=== PATIENT | female | born 1975 | race Caucasian/White ===

== ENCOUNTER 2016-08-11 01:53 | Emergency (ER) | payer OTHER, SELFPAY ==
[2016-08-11] MEDS ORDERED: Adacel (T-DAP) 0.5 ML VIAL ONE (02:08)
[2016-08-11] MEDS ORDERED: Ibuprofen 200 MG TAB ONE (02:16)
== END 2016-08-11 02:25 | disposition home or self-care (01) ==
LOC: BURERS 01:53
DX: S01.01XA Laceration without foreign body of scalp, initial encounter (principal); F17.210 Nicotine dependence, cigarettes, uncomplicated; W20.8XXA Other cause of strike by thrown, projected or falling object, initial encounter
CPT/HCPCS: 90715

== ENCOUNTER 2019-08-13 11:01 | Observation (INO) | payer SELFPAY ==
[2019-08-13 11:48] LABS: Bilirubin Negative (Negative); Blood, Urine Trace (Negative); Clarity Cloudy (Clear); Glucose, Urine (Dipstick) Negative (Negative); Leukocyte Large (Negative); Nitrite Positive (Negative); Protein, Urine (Dipstick) Trace mg/dL (Neg-Trace); Urobilinogen 0.2 mg/dL (Less than 2)
[2019-08-13 11:50] LABS: Pregnancy Test - Urine (BHCG) Negative (Negative); Pregu Control Background? CLEAR/WHITE (CLR/WHITE); Pregu Control Bar Appear? YES (CONTROL BAR); Specific Gravity 1.015 (1.002-1.036)
[2019-08-13] MEDS ORDERED: Ketorolac Tromethamine 30 MG/ML VIAL ONE (11:50)
[2019-08-13 11:55] LABS: Bacteria/HPF 3+ HPF (None Seen); RBC/HPF 0-3 HPF (0-3); WBC/HPF 21-50 HPF (0-3)
[2019-08-13 11:57] LABS: Mucous/LPF Rare LPF (<2+)
[2019-08-13 12:23] LABS: Hemoglobin 13.1 g/dL (12.0-16.0); Mean Corpuscular HGB CONC 31.7 g/dL (32.0-36.0); Mean Corpuscular Hemoglobin 29.3 pg (27.0-31.0); Mean Corpuscular Volume 92.6 fL (78.0-98.0); Mean Platelet Volume 5.9 fL (7.4-10.4); Platelet Count 459 thou/uL (130-400); RBC Distribution Width 11.8 % (11.5-14.5); Red Blood Cell (RBC) Count 4.47 mill/uL (4.20-5.40); White Blood Cell (WBC) Count 20.7 thou/uL (4.8-10.8)
[2019-08-13 12:25] LABS: Anion Gap 14 mmol/L (10-20); BUN (Urea Nitrogen) 8 mg/dL (7.0-18.7); Calc. Creatinine Clearance 0 mL/min (70-130); Calcium 9.1 mg/dL (7.8-10.44); Carbon Dioxide 24 mmol/L (22-29); Chloride 100 mmol/L (98-107); Estimated GFR-MDRD 73; Glucose 112 mg/dL (70-105); Potassium 4.1 mmol/L (3.5-5.1); Sodium 134 mmol/L (136-145)
[2019-08-13 12:39] LABS: Band 7 % (5-11); Eosinophils 1 % (0-10); Lymphocytes 13 % (21-51); MDiff Complete? YES; Monocytes 7 % (0-10); Neutrophil 72 % (42-75); Platelet Morphology Comment Appears Increased; RBC Morphology Normal
[2019-08-13] MEDS ORDERED: cefTRIAXone\\ROCEPHIN 2 GM VIAL ONE (12:46)
[2019-08-13] MEDS ORDERED: Sodium Chloride 0.9% 100 ML ONE (12:46)
[2019-08-13] MEDS ORDERED: Sodium Chloride 0.9% 1,000 ML IV SCH (14:30)
[2019-08-13] MEDS ORDERED: Prevnar 13-Val Conj/PF 0.5 ML SYRINGE IM ONE (15:00)
[2019-08-13 15:03] VITALS: BMI 20.2
[2019-08-13] MEDS: Ibuprofen 600 MG TAB PO PRN (16:16)
[2019-08-13] MEDS: Acetaminophen 325 MG TAB PO PRN ×2 (17:35→23:48)
--- NOTE | 2019-08-13 17:49 | CT ---
CT ABDOMEN AND PELVIS WITHOUT CONTRAST: 08/13/[address] was performed for evaluation of abdominal pain. This study was done without IV contr ast or oral contrast. The lung bases are significant in that there is an infiltrate in the left lower lobe posterolaterally . I suspect this may be a resolving pneumonia. The lungs are otherwise clear. The liver, spleen, pancreas, gallbladder, adrenal glands, kidneys and abdominal aorta were unremarkab le within the limitations of a noncontrast study. The bowel shows no distention, wall thickening or i nflammatory change around it. No free air or free fluid was seen. CT of the pelvis showed no pelvic masses, fluid collections, or inflammatory changes. IMPRESSION: 1. No acute abdominal findings. 2. Slightly irregular left lower lobe infiltrate. A resolving pneumonia seems probable and could be the cause of referred pain to the abdomen. A follow-up chest film is recommended after treatment. The findings discussed with Dr. Her at 12:12 on 08/13/19. POS: HOME
[2019-08-13] MEDS: Sodium Chloride 0.9% 1,000 ML IV SCH ×2 (18:46→23:48)
--- NOTE | 2019-08-13 19:29 | HP ---
HISTORY OF PRESENT ILLNESS: A 44-year-old white female admitted from the emergency room with 2-day complaint of left flank pain. She denies fever, chills, sweats, or otherwise feeling unwell. REVIEW OF SYSTEMS: CONSTITUTIONAL: Denies fever, chills, recent weight loss, sweats, or appetite change. EYES: No discharge or eye redness. ENT: Denies URI symptoms, including sore throat or ear pain. CV: Denies chest pain, dyspnea, or edema. RESPIRATORY: She continues to have mild cough. GI: Denies constipation, diarrhea, nausea, or vomiting. MUSCULOSKELETAL: Denies joint pain or swelling. SKIN: Denies skin rash. NEUROLOGIC: Denies dizziness, confusion, complaints of headache. PSYCH: She denies mental health history. PAST MEDICAL HISTORY: Negative. PAST SURGICAL HISTORY: Negative. SOCIAL HISTORY: Half a pack a day smoker. She uses daily marijuana. Denies alcohol or other recreational drugs. ALLERGIES: NO KNOWN ALLERGIES. MEDICATIONS: None. PHYSICAL EXAMINATION: VITAL SIGNS: At 1600 on the day of admission, temperature 99.2, pulse 88, BP 99/58, respirations 20, and 97% on room air. CONSTITUTIONAL: No fever. She is alert and oriented x3, well appearing. HEENT: Head; atraumatic and normocephalic. Eyes; no discharge. Conjunctivae normal. Pupils are equal, round, and reactive to light. EOMs intact. NECK: Supple. Normal range of motion. Trachea midline. RESPIRATIONS: Clear to auscultation. No wheezing, no rales. CARDIOVASCULAR: Includes normal. Regular rate and rhythm. No murmur. ABDOMEN: Soft, nontender. No mass or organomegaly. Left positive for CVAT. NEUROLOGIC: Normal speech. SKIN: Warm, dry, and intact. No rash. PSYCHIATRIC: Appropriate. Normal affect. Medications, she received 2 g of Rocephin in the ER around noon today. We will continue that q.24 hours. We will also add Levaquin to cover possible urosepsis. LABORATORY: WBC is 20.7, H and H 13.1 and 41.4, platelets 459, neutrophil 72, bands 7, and lymphs 13. Lactic acid 1.8. Sodium 134, potassium 4.1, and creatinine 0.85. Negative urine hCG. Urine; positive nitrites, urine wbc's 21 to 50, 3+ bacteria. Her CAT scan for stone protocol was normal abdomen with possible left lower lobe infiltrate. DIAGNOSIS: Pyelonephritis versus left lower lobe pneumonia. Medications, Rocephin 2 g q.24, Levaquin 500 mg q.24. She is admitted in observation, expect for her to be discharged within 24 hours. Job ID: [id number]
[2019-08-14 04:54] LABS: Anion Gap 9 mmol/L (10-20); BUN (Urea Nitrogen) 9 mg/dL (7.0-18.7); Calc. Creatinine Clearance 71 mL/min (70-130); Calcium 7.8 mg/dL (7.8-10.44); Carbon Dioxide 21 mmol/L (22-29); Chloride 113 mmol/L (98-107); Estimated GFR-MDRD 88; Glucose 131 mg/dL (70-105); Platelet Count 313 thou/uL (130-400); Potassium 3.5 mmol/L (3.5-5.1); Sodium 139 mmol/L (136-145)
[2019-08-14 04:55] LABS: #Basophils 0.2 thou/uL (0.0-0.2); #Eosinphils 0.2 thou/uL (0.0-0.7); #Lymphocytes 1.6 thou/uL (1.20-3.40); #Monocytes 1.8 thou/uL (0.11-0.59); #Neutrophils 10.3 thou/uL (1.40-6.50); %Basophils 1.2 % (0.0-1.0); %Eosinophils 1.7 % (0.0-10.0); %Lymphocytes 11.4 % (21.0-51.0); %Monocytes 12.5 % (0.0-10.0); %Neutrophils 73.2 % (42.0-75.0); Hemoglobin 10.6 g/dL (12.0-16.0); Mean Corpuscular HGB CONC 31.9 g/dL (32.0-36.0); Mean Platelet Volume 6.1 fL (7.4-10.4); RBC Distribution Width 11.8 % (11.5-14.5); Red Blood Cell (RBC) Count 3.53 mill/uL (4.20-5.40)
[2019-08-14] MEDS: Acetaminophen 325 MG TAB PO PRN ×4 (06:07→20:39)
[2019-08-14] MEDS: Sodium Chloride 0.9% 1,000 ML IV SCH ×2 (06:08→14:49)
[2019-08-14] MEDS ORDERED: cefTRIAXone\\ROCEPHIN 2 GM in Sodium Chloride 0.9% 100 ML IVPB SCH (12:00)
--- NOTE | 2019-08-14 17:23 | RAD ---
CHEST TWO VIEWS: 08/14/19 Comparison is made with yesterday's CT abdomen and pelvis study which showed an infiltrate in the lef t lower lobe. The infiltrate is very difficult to see on the PA film of the chest series. On the lateral view, one does see obscuration of the posterior part of the left hemidiaphragm due to this infiltrate. Thus, it s plain film findings are subtle. The lungs are otherwise clear. There are no effusions. The heart is normal in size. IMPRESSION: Subtle left lower lobe infiltrate. Best seen on CT. Certainly no larger today than yesterday. POS: HOME
[2019-08-14] MEDS: Ibuprofen 600 MG TAB PO PRN (21:18)
[2019-08-15 06:03] LABS: ALT (SGPT) 47 U/L (8-55); AST (SGOT) 35 U/L (5-34); Alkaline Phosphatase 107 U/L (40-110); Anion Gap 10 mmol/L (10-20); BUN (Urea Nitrogen) 8 mg/dL (7.0-18.7); Bilirubin, Total Less than 0.2 mg/dL (0.2-1.2); Calc. Creatinine Clearance 73 mL/min (70-130); Calcium 8.4 mg/dL (7.8-10.44); Carbon Dioxide 23 mmol/L (22-29); Chloride 110 mmol/L (98-107); Estimated GFR-MDRD Greater than 90; Globulin 2.9 g/dL (2.4-3.5); Glucose 116 mg/dL (70-105); Protein, Total 5.9 g/dL (6.0-8.3); Sodium 139 mmol/L (136-145)
[2019-08-15 06:17] LABS: Band 5 % (5-11); Eosinophils 3 % (0-10); Hemoglobin 10.5 g/dL (12.0-16.0); Hypochromia SLIGHT = 6-15 cells (100X) (0-5/hpf); Lymphocytes 18 % (21-51); MDiff Complete? YES; Mean Corpuscular Hemoglobin 29.8 pg (27.0-31.0); Mean Corpuscular Volume 93.2 fL (78.0-98.0); Mean Platelet Volume 6.2 fL (7.4-10.4); Monocytes 12 % (0-10); Neutrophil 61 % (42-75); Platelet Count 328 thou/uL (130-400); Platelet Morphology Comment Appears Adequate; RBC Distribution Width 11.8 % (11.5-14.5); Red Blood Cell (RBC) Count 3.53 mill/uL (4.20-5.40); White Blood Cell (WBC) Count 13.1 thou/uL (4.8-10.8)
[2019-08-15 07:07] VITALS: BP 111/68; TEMP 98.1
[2019-08-15] MEDS ORDERED: cefTRIAXone\\ROCEPHIN 1 GM in Sodium Chloride 0.9% 100 ML IVPB SCH (08:00)
--- NOTE | 2019-08-15 12:18 | DIS ---
DATE OF ADMISSION: 08/13/2019 DATE OF DISCHARGE: 08/15/2019 PRIMARY CARE PHYSICIAN: Unassigned. CONDITION AT THE TIME OF DISCHARGE: Left lower lobe pneumonia; urinary tract infection, resolving. CURRENT MEDICATIONS: No home medications. DISCHARGE MEDICATIONS: 1. Levaquin 500 mg p.o. daily #7. 2. Nicotine 7 mg patch #14 one refill. HISTORY OF PRESENTING ILLNESS: A 44-year-old white female arrived to [facility] ER with 2-day complaint of left flank pain, dysuria, and 2- to 3-week history of lingering cough from resolving URI. She denied fever, chills, sweats at the time of admission, but later reported subjective fever prior to admission. She is 1/2 ppd smoker and uses marijuana daily. HOSPITAL COURSE: Her urinalysis was positive for Leukocytes and trace blood. CT of abdomen, stone protocol was negative, but revealed a small left lower lobe infiltrate. Initial White Blood Count was 20,000, subsequently improved over the next two days to13,000. Her lactic acid was normal. Blood cultures were negative x2. Urine culture was positive for E coli, sensitivity was still pending upon discharge. The patient was treated empirically for UTI and left lower lobe pneumonia with Rocephin and Levaquin IV. By day 2, she continued to complain of left flank pain, but had decided that it was related to intercostal muscles strain from coughing. She does continue to have a loose cough. She never ran fever during that entire hospitalization, maintained normal p.o. intake, and good appetite throughout her stay and her vital signs remained normal. Repeat chest x-ray on day 1 showed subtle left lower lobe infiltrate no larger than on the day of admission. FOLLOWUP: Discharged home with instructions to schedule followup visit and establish care with provider at [facility] [place] in 1 week. Repeat chest x-ray in 1 week. Stop smoking tobacco and marijuana for the sake of your lung health and finish oral antibiotics as directed. Job ID: [id number]
== END 2019-08-15 09:12 | disposition home or self-care (01) ==
LOC: BURERS 11:01 → BURMED 14:01 → INTOOBSV 14:01
PROVIDERS: ADMIT Family Medicine; ATTEND Family Medicine
DX: J18.9 Pneumonia, unspecified organism (principal); N39.0 Urinary tract infection, site not specified; B96.20 Unspecified Escherichia coli [E. coli] as the cause of diseases classified elsewhere; F17.210 Nicotine dependence, cigarettes, uncomplicated
CPT/HCPCS: 36415; 71046; 74176; 80048; 80053; 81003; 81015; 81025; 83605; 83690; 85025; 87040; 87077; 87086; 87186; 96361; 96365; 96367; 96375; 96376; G0378; J0696; J1885; J1956; J3490

== ENCOUNTER 2020-12-23 18:02 | Emergency (ER) | payer SELFPAY ==
[2020-12-23] MEDS ORDERED: Boostrix 0.5 ML (Tdap) VIAL ONE (18:33)
[2020-12-23] MEDS ORDERED: Ibuprofen 200 MG TAB ONE (18:33)
== END 2020-12-23 23:30 | disposition home or self-care (01) ==
LOC: BURERS 18:02
DX: S61.451A Open bite of right hand, initial encounter (principal); S20.212A Contusion of left front wall of thorax, initial encounter; L08.9 Local infection of the skin and subcutaneous tissue, unspecified; Y04.1XXA Assault by human bite, initial encounter; F17.210 Nicotine dependence, cigarettes, uncomplicated
CPT/HCPCS: 90471; 90715